=== PATIENT | female | born 1975 ===

== ENCOUNTER 2025-01-18 05:55 | Day surgery (SDC) | payer OTHER ==
[2025-01-13 12:15] LABS: BASO % 0.9 % (0.1-1.2); EOS # 0.21 (0.04-0.54); EOS % 3.7 % (0.7-7.0); LYMPH # 1.66 (1.18-3.74); LYMPH % 29.2 % (19.3-53.1); MEAN PLATELET VOLUME 9.70 fl (9.4-12.4); MONO # 0.54 (0.24-0.82); MONO % 9.5 % (4.7-12.5); NEUT # 3.22 (1.56-6.13); NEUT % 56.5 % (34.0-71.1); RED CELL DISTRIBUTION WIDTH 16.6 % (11.6-14.4)
[2025-01-13 12:28] VITALS: BP 123/82
[2025-01-13 12:32] LABS: INR 1.0
[2025-01-13 13:00] LABS: ALT/SGPT 19.0 U/L (12-78); AST/SGOT 13.0 U/L (15-37); BILIRUBIN TOTAL 0.55 mg/dL (0.3-1.2); BUN CREA RATIO 16.0 (7.0-25.0); CREATININE SERUM 0.64 mg/dL (0.55-1.02); GFR 98.22; GLOBULINA 3.9 G/DL (2.4-3.5); GLUCOSE FASTING 85.0 mg/dL (65-100); OSMOLALITY SERUM 280.0 MOSM/KG (275-295); T4 FREE 1.01 NG/ML (0.76-1.46); TSH 2.48 uIU/mL (0.358-3.74)
[~2025-01-18] VITALS: Ht 167.6 cm; Wt 63.5 kg
[~2025-01-18 05:55] MED LIST: SYNTHROID50 MCG PO
[2025-01-18] MEDS ORDERED: POVIDONE-IODINE 118 ML BOTT TOP ONE (08:45)
== END 2025-01-18 14:00 | disposition home or self-care (01) ==
LOC: CIR.AMB 05:55
PROVIDERS: ATTEND Obstetrics & Gynecology Maternal & Fetal Medicine
DX: N84.0 Polyp of corpus uteri (principal)